=== PATIENT | female | born 2005 | race Two or more races ===

== ENCOUNTER 2024-07-23 18:53 | Outpatient (CLI) | payer OTHER ==
[2024-07-23 18:56] VITALS: BP 102/66; O2SAT 99
[2024-07-23] MEDS ORDERED: FAMOTIDINE/PF 20 MG/2 ML VIAL IV SCH (19:29)
[2024-07-23] MEDS ORDERED: RINGERS SOLUTION,LACTATED 1,000 ML IV SCH (19:30)
[2024-07-23] MEDS ORDERED: FAMOTIDINE/PF 20 MG/2 ML VIAL ONE (19:34)
[2024-07-23 19:48] LABS: HEMOGLOBIN 12.2 g/dL (12.0-15.00); MEAN CELL VOLUME 87.9 fL (80.00-100.00); MEAN CORPUSCULAR HEMOGLOBIN 29.9 pg (27.00-32.0); PLATELET COUNT 182 K/uL (150-450); RED CELL DISTRIBUTION WIDTH 14.1 % (11.5-14.5)
[2024-07-23 19:49] LABS: URINE APPEARANCE Cloudy; URINE BILIRRUBIN Small (NEGATIVE); URINE BLOOD Negative; URINE COLOR Dark Yellow; URINE GLUCOSE Negative (NEGATIVE); URINE KETONE 15 (NEGATIVE); URINE LEUKOCYTE Moderate; URINE NITRATE Negative; URINE PROTEIN 30 (NEGATIVE)
[2024-07-23 19:53] LABS: URINE BACTERIA 6783.3 uL (0.0-1933); URINE WBC 266.7 uL (0.0-23.2)
[2024-07-23 20:08] LABS: ALBUMIN 2.8 gm/dL (3.4-5.0); BILIRUBIN TOTAL 0.57 mg/dL (0.3-1.2); CALCIUM 8.8 mg/dL (8.5-10.1); CREATININE SERUM 0.52 mg/dL (0.55-1.02); GFR 151.91; GLOBULINA 3.4 G/DL (2.4-3.5); POTASSIUM 3.95 mEq/L (3.5-5.1); TOTAL PROTEIN 6.2 gm/dL (6.4-8.2)
[2024-07-23 20:30] LABS: URINE EPITHELIAL CELLS > 201.7 uL (0.0-38.8)
[2024-07-23 23:45] VITALS: BP 100/61
[2024-07-24 03:50] VITALS: BP 92/55
[2024-07-24 06:16] VITALS: BP 98/60; O2SAT 96
[2024-07-24] MEDS ORDERED: CEFAZOLIN SODIUM 1,000 MG VIAL ONE (08:13)
[2024-07-24] MEDS ORDERED: ACETAMINOPHEN 500 MG GEL..CAP PO ONE (08:13)
[2024-07-24] MEDS ORDERED: ACETAMINOPHEN 500 MG GEL..CAP PO PRN (08:30)
[2024-07-24] MEDS ORDERED: CEFAZOLIN SODIUM 1,000 MG VIAL IV ONE (08:30)
[2024-07-24 12:09] VITALS: BP 101/66
[2024-07-24 14:38] VITALS: BP 101/66
== END 2024-07-24 14:41 | disposition home or self-care (01) ==
LOC: OBS/DEL 18:53 → LDR 07-24 00:36 → OBS/DEL 07-24 00:39
PROVIDERS: ATTEND Specialist
DX: O23.43 Unspecified infection of urinary tract in pregnancy, third trimester (principal); N39.0 Urinary tract infection, site not specified; Z3A.34 34 weeks gestation of pregnancy; O26.893 Other specified pregnancy related conditions, third trimester; R19.7 Diarrhea, unspecified; R10.9 Unspecified abdominal pain

== ENCOUNTER 2024-07-26 09:04 | Emergency (ER) | payer OTHER ==
[~2024-07-26] VITALS: Ht 172.7 cm; Wt 77.1 kg
[2024-07-26 10:51] LABS: HEMATOCRIT 34.7 % (36.0-45.00); HEMOGLOBIN 11.7 g/dL (12.0-15.00); MEAN CELL VOLUME 88.6 fL (80.00-100.00); MEAN CORPUSCULAR HEMOGLOBIN 29.9 pg (27.00-32.0); MEAN CORPUSCULAR HGB CONC 33.7 g/dl (32.0-36.0); PLATELET COUNT 192 K/uL (150-450); RED BLOOD COUNT 3.92 M/uL (4.00-6.00); RED CELL DISTRIBUTION WIDTH 14.1 % (11.5-14.5)
== END 2024-07-26 12:01 | disposition home or self-care (01) ==
LOC: ER 09:06
PROVIDERS: Emergency Medicine
DX: Z34.90 Encounter for supervision of normal pregnancy, unspecified, unspecified trimester (principal); R53.81 Other malaise; R09.81 Nasal congestion; Z20.822 Contact with and (suspected) exposure to COVID-19

== ENCOUNTER 2024-08-19 12:22 | Inpatient (IN) | payer OTHER ==
[2024-08-19] VITALS (9 sets, daily range): BP systolic 102–128; BP diastolic 59–73
[~2024-08-19] VITALS: Ht 172.7 cm; Wt 75.3 kg
[2024-08-19] MEDS ORDERED: PRENATABS RX T1 EACH PO (12:30)
[2024-08-19] MEDS ORDERED: AMPICILLIN SODIUM 2,000 MG VIAL ONE (12:35)
[2024-08-19] MEDS ORDERED: OXYTOCIN 20 UNITS/500ML RL PIGGYBAG IV ONE (12:37)
[2024-08-19] MEDS ORDERED: AMPICILLIN SODIUM 2,000 MG VIAL IV ONE (12:45)
[2024-08-19] MEDS ORDERED: RINGERS SOLUTION,LACTATED 1,000 ML IV SCH (12:45)
[2024-08-19] MEDS ORDERED: OXYTOCIN 500 ML IV SCH (12:45)
[2024-08-19] MEDS ORDERED: PROMETHAZINE HCL 25 MG/ML AMPUL ONE (13:49)
[2024-08-19] MEDS ORDERED: PROMETHAZINE HCL 25 MG/ML AMPUL IV ONE (14:00)
[2024-08-19] MEDS ORDERED: MEPERIDINE HCL/PF 50 MG/ML VIAL IV ONE (14:00)
[2024-08-19 14:24] LABS: URINE APPEARANCE Clear; URINE BILIRRUBIN Negative (NEGATIVE); URINE BLOOD Negative; URINE COLOR Yellow; URINE GLUCOSE Negative (NEGATIVE); URINE KETONE Negative (NEGATIVE); URINE LEUKOCYTE Moderate; URINE NITRATE Negative; URINE PROTEIN Negative (NEGATIVE); URINE UROBILINOGEN 0.2 E.U./dl
[2024-08-19 14:25] LABS: HEMATOCRIT 36.2 % (36.0-45.00); HEMOGLOBIN 12.2 g/dL (12.0-15.00); MEAN CORPUSCULAR HEMOGLOBIN 29.7 pg (27.00-32.0); MEAN CORPUSCULAR HGB CONC 33.8 g/dl (32.0-36.0); PLATELET COUNT 217 K/uL (150-450); RED BLOOD COUNT 4.11 M/uL (4.00-6.00); RED CELL DISTRIBUTION WIDTH 14.1 % (11.5-14.5)
[2024-08-19 14:28] LABS: URINE EPITHELIAL CELLS 15.6 uL (0.0-38.8); URINE RBC 9.5 uL (0.0-20.8); URINE WBC 50.9 uL (0.0-23.2)
[2024-08-19 14:42] LABS: INR 0.94; PARTIAL THROMBOPLASTIN TIME 27.9 SECONDS (22.0-34.0); PROTHROMBIN TIME 10.3 SECONDS (9.0-11.5)
[2024-08-19 14:47] LABS: BILIRUBIN TOTAL 0.49 mg/dL (0.3-1.2); CALCIUM 9.2 mg/dL (8.5-10.1); CREATININE SERUM 0.5 mg/dL (0.55-1.02); GFR 158.94; GLOBULINA 3.9 G/DL (2.4-3.5); POTASSIUM 3.94 mEq/L (3.5-5.1); TOTAL PROTEIN 6.9 gm/dL (6.4-8.2)
[2024-08-19] MEDS ORDERED: OXYTOCIN 20 UNITS/1000ML RL PIGGYBAG IV ONE (15:14)
[2024-08-19] MEDS ORDERED: ERYTHROMYCIN BASE OPHT 1GM EACH TUBE OP ONE ×2 (15:14→16:45)
[2024-08-19] MEDS ORDERED: LIDOCAINE HCL 1% 10ML VIAL ONE (15:14)
[2024-08-19] MEDS ORDERED: CHLORHEXIDINE GLUCONATE 120 ML BOTTLE TOP ONE ×2 (15:14→16:45)
[2024-08-19] MEDS ORDERED: AMPICILLIN SODIUM 1,000 MG VIAL IV SCH (16:00)
[2024-08-19] MEDS ORDERED: LIDOCAINE HCL 1% 10ML VIAL IJ ONE (16:45)
[2024-08-19] MEDS ORDERED: OXYTOCIN 1,000 ML IV SCH (16:45)
[2024-08-19] MEDS ORDERED: IBUprofen 600 MG TABLET PO SCH (17:45)
[2024-08-20 00:38] VITALS: BP 115/64
[2024-08-20 08:00] VITALS: BP 105/67
[2024-08-20] MEDS ORDERED: IBUprofen 600 MG TABLET PO SCH (08:00)
[2024-08-20 16:10] VITALS: BP 100/65
[2024-08-21 00:34] VITALS: BP 108/70
[2024-08-21 08:42] VITALS: BP 108/69
== END 2024-08-21 14:03 | disposition home or self-care (01) | DRG 807 ==
LOC: OB/GYN 12:22 → LDR 12:22 → OB/GYN 16:25
PROVIDERS: ADMIT Specialist; ATTEND Specialist
PROC: 10E0XZZ Delivery of Products of Conception, External Approach (ICD-10-PCS; principal; 2024-08-19)
PROC: 0KQM0ZZ Repair Perineum Muscle, Open Approach (ICD-10-PCS; 2024-08-19)
PROC: 4A1HXCZ Monitoring of Products of Conception, Cardiac Rate, External Approach (ICD-10-PCS; 2024-08-19)
DX: O70.1 Second degree perineal laceration during delivery (principal); O99.824 Streptococcus B carrier state complicating childbirth; Z37.0 Single live birth; Z3A.38 38 weeks gestation of pregnancy